=== PATIENT | female | born 1990 | race Caucasian/White ===

== ENCOUNTER 2023-10-23 15:28 | Emergency (ER) | payer OTHER, SELFPAY ==
[2023-10-23 15:34] VITALS: BP 134/84; PULSE 101; RESP 18; TEMP 36.4; O2SAT 100
--- NOTE | 2023-10-23 16:52 | ED.GENADULT ---
HPI - General Adult General Chief complaint: Unspecified Stated complaint: CONSTIPATION, 13WKS PREG Time Seen by Provider: 10/23/23 16:28 History of Present Illness HPI narrative: 33-year-old female who is currently 13 weeks , , reports for evaluation for constipation. Patient states her last bowel movement was approximately 1 week ago. States she normally has a bowel movement every 3 days. She states the past couple days, she has noticed some discomfort in her rectum. States it feels like she has a large amount of stool that she cannot void. States she had an episode of emesis and then had a panic attack which prompted her to come to the ER. Patient states that she conceived her baby via IVF and she is worried that she is putting her baby in jeopardy. She denies abdominal pain, vaginal bleeding or leaking of fluids, fever, dysuria or hematuria. Her OBGYN is Dr. Lizarraga. states her last appointment was 2 weeks ago and unremarkable. Related Data Home Medications Medication Instructions Recorded Confirmed folic acid 1 mg tablet 1 mg PO DAILY 10/14/23 10/14/23 vits,calcium no.78-iron 1 tablet PO DAILY 10/14/23 10/14/23 fumarate-folic acid 29 mg-1 mg tablet (Prenatabs FA) Allergies Allergy/AdvReac Type Severity Reaction Status Date / Time No Known Allergies Allergy Unverified 10/14/23 08:50 Review of Systems Review of Systems: CONSTITUTIONAL: Denies fever, chills, or sweats. EYES: Denies visual changes, redness, or discharge. ENT: Denies rhinorrhea, congestion, sore throat, or otalgia. CARDIOVASCULAR: Denies chest pain, palpitations, or edema. RESPIRATORY: Denies cough or dyspnea. GASTROINTESTINAL: Denies abdominal pain, nausea, vomiting, or diarrhea. GENITOURINARY: Denies dysuria or hematuria. SKIN: Denies rash or itching. MUSCULOSKELETAL: Denies back pain, joint pain, or myalgia. NEUROLOGIC: Denies headache, numbness, or weakness. PSYCHIATRIC: Denies anxiety or depression. [facility] Surgical History Surgical History H/O gynecological procedure 2 rounds IVF History of tubal ligation Hx of tonsillectomy Social History Social History (Reviewed 10/23/23 @ 16:54 by EBENEZER Glover Smoking status: Never smoker Alcohol intake: never Substance use: never Substance use type: does not use Do You Feel Safe in your Home?: Yes Lack of Transportation: No Lack of Food: Never True Current Housing: I Have Housing Concerned About Future Housing: No Difficulty Paying Gas/Electric Bills: No Difficulty Paying for Meds: No Currently Unemployed: No Education: Bachelor's Degree Difficulty w/ Childcare or Family Care: No Living arrangements: with family Occupation/Education: occupation Additional occupation/education comments: Customer service Gender identity (if verbalized by the patient): Female Sexual Orientation (if Verbalized by the Patient): Lesbian, Woodson, or Homosexual Exam Narrative: GENERAL: Well-appearing, well-nourished, and in no acute distress. non-toxic appearing. She is very anxious, rapid speech, tearful HEAD: Normocephalic, atraumatic. EYES: PERRLA and EOMI. ENT: Nares clear, no rhinorrhea or epistaxis. Mucous membranes moist. NECK: Supple. CHEST: Clear to auscultation. No respiratory distress. HEART: Regular rate and rhythm. No murmur heard. Normal peripheral pulses. ABDOMEN: Soft, nontender, nondistended, normal active bowel sounds. N guarding, rebound or rigidity. No CVA tenderness. EXTREMITIES: Normal range of motion. No edema. SKIN: Warm, dry, no rash. NEURO: No focal deficits. Alert and oriented x3 Course Vital Signs Vital signs: Vital Signs Temperature 97.6 F 10/23/23 15:34 Pulse Rate 101 H 10/23/23 15:34 Respiratory Rate 18 10/23/23 15:34 Blood Pressure 134/84 10/23/23 15:34 Pulse Oximetry 100 10/23/23 15:34 Oxygen Delivery Room Air 09/26
[2023-10-23 17:08] VITALS: BP 129/78; PULSE 68; RESP 17; TEMP 36.8; O2SAT 100
== END 2023-10-23 17:09 | disposition home or self-care (01) ==
LOC: ANHED 17:03
PROVIDERS: Emergency Provider Physician Assistant
DX: O99.611 Diseases of the digestive system complicating pregnancy, first trimester (principal); K59.00 Constipation, unspecified; Z3A.13 13 weeks gestation of pregnancy
CPT/HCPCS: 99283

== ENCOUNTER 2024-02-03 07:44 | Outpatient (CLI) | payer OTHER, SELFPAY ==
[2024-02-03 09:58] LABS: Basophils Absolute Auto 0.1 K/mm3 (0.0-0.1); Basophils Percent Auto 0.6 % (0.2-1.2); Eosinophils Absolute Auto 0.3 K/mm3 (0-0.3); Eosinophils Percent Auto 2.6 % (0-4.4); Hematocrit 33.3 % (37.0-47.0); Hemoglobin 11.2 g/dL (12.0-15.0); Immature Granulocyte Absolute 0.12 K/mm3 (0.00-0.031); Immature Granulocyte Percent A 1.2 % (0-0.5); Lymphocytes Absolute Auto 1.86 K/mm3 (0.9-3.2); Lymphocytes Percent Auto 17.9 % (18.3-44.2); Mean Corpuscular HGB Conc 33.6 g/dl (32-36); Mean Corpuscular Hemoglobin 30.3 pg (26-34); Mean Platelet Volume 9.9 fl (7.4-10.4); Monocytes Absolute Auto 0.8 K/mm3 (0.1-0.6); Monocytes Percent Auto 7.5 % (2.6-8.5); Neutrophils Absolute Auto 7.3 K/mm3 (1.3-6.7); Neutrophils Percent Auto 70.2 % (45.5-73.1); Platelet Count Result 222 k/mm3 (150-375); Red Cell Distribution Width 13.1 % (11.5-14.5); White Blood Count 10.4 K/mm3 (4.5-10.0)
[2024-02-03 10:15] LABS: Glucose 1 Hour PP 50gm Dose 111 mg/dL
[2024-02-03 11:43] LABS: Rapid Plasma Reagin Non-Reactive (NonReactive)
[2024-02-03 11:58] LABS: HIV 1/2 Ab P24 Ag Result Negative (Negative)
[2024-02-03] MEDS: RHO(D) IMMUNE GLOBULIN 300 MCG/2 ML SYRINGE IM (15:57)
== END 2024-02-03 07:45 | disposition home or self-care (01) ==
LOC: ANHLAB 07:46
PROVIDERS: Visit Provider Student in an Organized Health Care Education/Training Program
DX: Z34.90 Encounter for supervision of normal pregnancy, unspecified, unspecified trimester (principal); Z3A.00 Weeks of gestation of pregnancy not specified
CPT/HCPCS: 36415; 82947; 84443; 85025; 85461; 86592; 86703; 86850; 86900; 86901; 90384; 96372; G0432; J2790

== ENCOUNTER 2024-04-16 12:54 | Inpatient (IN) | payer OTHER, SELFPAY ==
[2024-04-16] VITALS (125 sets, daily range): BP systolic 106–151; BP diastolic 51–90; PULSE 38–108; RESP 18; TEMP 36.5–36.6; O2SAT 89–100; BMI 26.8
[2024-04-16] MEDS: LACTATED RINGERS 1,000 ML 125 ML IV CONT ×3 (15:10→23:24)
--- NOTE | 2024-04-16 15:16 | LDADM ---
This patient, Juliana Cassidy, was admitted to Labor/Delivery/Recovery 105 on 04/16/24 at 12:54. Plans for labor, pain management and were discussed with patient. Patient/family oriented to hospital policies and general routines including ID bracelet, bed and alarms, visiting hours, pain management, procedures, bathroom and other care routines, personal items, smoking policy, room service/diet and guest tray routines, security routines, and visiting hours. Patient/Family are encouraged to report perceived risks to care and to ask questions if they do not understand what they are told or what they should do. See OBIX for further documentation.
[2024-04-16 15:22] LABS: Basophils Percent Auto 0.4 % (0.2-1.2); Eosinophils Absolute Auto 0.1 K/mm3 (0-0.3); Eosinophils Percent Auto 1.2 % (0-4.4); Hematocrit 37.9 % (37.0-47.0); Hemoglobin 13.3 g/dL (12.0-15.0); Immature Granulocyte Absolute 0.08 K/mm3 (0.00-0.031); Immature Granulocyte Percent A 0.8 % (0-0.5); Lymphocytes Absolute Auto 2.09 K/mm3 (0.9-3.2); Lymphocytes Percent Auto 21.2 % (18.3-44.2); Mean Corpuscular HGB Conc 35.1 g/dl (32-36); Mean Corpuscular Volume 85.4 fl (80-100); Mean Platelet Volume 11.3 fl (7.4-10.4); Monocytes Absolute Auto 0.8 K/mm3 (0.1-0.6); Monocytes Percent Auto 8.2 % (2.6-8.5); Neutrophils Absolute Auto 6.7 K/mm3 (1.3-6.7); Neutrophils Percent Auto 68.2 % (45.5-73.1); Platelet Count Result 180 k/mm3 (150-375); Red Blood Count 4.44 M/mm3 (4.2-5.4); Red Cell Distribution Width 13.2 % (11.5-14.5); White Blood Count 9.9 K/mm3 (4.5-10.0)
--- NOTE | 2024-04-16 15:44 | WPDANESEPP ---
Anes - Eval Pre Procedure Procedure: Labor Epidural Date/Time: 04/16/24 15:44 Surgeon: Zia Preop Diagnosis: Pain during labor Pre Op Diagnosis: Labor Patient Data Age: 33 Gender: F Height: 1.73 m Weight: 80 kg Last Vital Signs O2 Del Method Room Air 04/16/24 15:15 Allergies Allergy/AdvReac Type Severity Reaction Status Date / Time No Known Allergies Allergy Verified 04/14/24 08:56 Home Medications Medication Instructions Recorded Confirmed Type aspirin 81 mg tablet,delayed 81 mg PO DAILY #90 tabs 10/14/23 04/14/24 Rx release folic acid 1 mg tablet 1 mg PO DAILY 10/14/23 04/14/24 History vits,calcium no.78-iron 1 tablet PO DAILY #90 tabs 11/05/23 04/14/24 Rx fumarate-folic acid 29 mg-1 mg tablet (Prenatabs FA) docusate sodium 100 mg capsule 100 mg PO BID #120 caps 11/11/23 04/14/24 Rx (Colace) ondansetron 4 mg disintegrating 4 mg PO Q6H PRN nausea and 11/11/23 04/16/24 Rx tablet vomiting #30 tabs Laboratory Tests 04/16/24 14:55 WBC 9.9 K/mm3 (4.5-10.0) RBC 4.44 M/mm3 (4.2-5.4) Hgb 13.3 g/dL (12.0-15.0) Hct 37.9 % (37.0-47.0) MCV 85.4 fl (80-100) MCH 30.0 pg (26-34) MCHC 35.1 g/dl (32-36) RDW 13.2 % (11.5-14.5) Plt Count 180 k/mm3 (150-375) MPV 11.3 H fl (7.4-10.4) Immature Gran % (Auto) 0.8 H % (0-0.5) Neut % (Auto) 68.2 % (45.5-73.1) Lymph % (Auto) 21.2 % (18.3-44.2) [place] % (Auto) 8.2 % (2.6-8.5) Eos % (Auto) 1.2 % (0-4.4) Baso % (Auto) 0.4 % (0.2-1.2) Lymph # (Auto) 2.09 K/mm3 (0.9-3.2) [place] # (Auto) 0.8 H K/mm3 (0.1-0.6) Eos # (Auto) 0.1 K/mm3 (0-0.3) Baso # (Auto) 0.0 K/mm3 (0.0-0.1) Abs Immat Gran (auto) 0.08 H K/mm3 (0.00-0.031) Absolute Neuts (auto) 6.7 K/mm3 (1.3-6.7) Absolute Nucleated RBC 0.000 K/mm3 (0.0-0.012) Nucleated RBC % 0.0 % (0.0-0.2) RPR Pending HIV 1&2 Ab/P24 Ag 4thGn Pending Patient hx anesthesia problems: none Family hx anesthesia problems: none Results Review: All pre-operative results and documents have been reviewed as part of the pre-operative evaluation. [facility] Surgical History Surgical History H/O gynecological procedure 2 rounds IVF History of tubal ligation Hx of tonsillectomy Family History Family History Other Unknown family medical history Social History Social History Smoking status: Never smoker Alcohol intake: never Substance use: never Substance use type: does not use Do You Feel Safe in your Home?: Yes Lack of Transportation: No Lack of Food: Never True Current Housing: I Have Housing Concerned About Future Housing: No Difficulty Paying Gas/Electric Bills: No Difficulty Paying for Meds: No Currently Unemployed: No Education: Bachelor's Degree Difficulty w/ Childcare or Family Care: No Living arrangements: with family Occupation/Education: occupation Additional occupation/education comments: Customer service Gender identity (if verbalized by the patient): Female Sexual Orientation (if Verbalized by the Patient): Lesbian, Woodson, or Homosexual Spiritual care concerns: No Exam Day of Procedure 04/16/24 15:44 Patient weight: normal Heart: regular rate and rhythm Lungs: normal air movement Airway: Mallampati scale class II Neurological: alert and oriented
[2024-04-16 16:01] LABS: Rapid Plasma Reagin Non-Reactive (NonReactive)
[2024-04-16 16:12] LABS: HIV 1/2 Ab P24 Ag Result Negative (Negative)
[2024-04-16] MEDS: CALCIUM CARBONATE (TUMS) 500 MG (200 MG ELEMENTAL) PO (20:13)
[2024-04-16] MEDS: ONDANSETRON INJ 4 MG/2 ML VIAL IV PUSH (20:34)
[2024-04-16] MEDS: OXYTOCIN 30 UNITS/NS 500 ML 30 UNITS/500 ML BAG IV CONT (22:16)
[2024-04-17] VITALS (46 sets, daily range): BP systolic 92–133; BP diastolic 57–84; PULSE 74–156; RESP 16–18; TEMP 36.6–36.9; O2SAT 89–100
[2024-04-17] MEDS: FAMOTIDINE 20 MG/2 ML VIAL IV PUSH (00:54)
--- NOTE | 2024-04-17 02:23 | PM.IMHP ---
H&P: HPI History of Present Illness Date/Time: 04/17/24 02:23 Chief Complaint: Contractions Narrative: 33 y/o at 38 6/7 by IVF dating. PNC uncomplicated. Labs reviewed. GBS neg. She presented to L and D with contractions and was 4 cm. Admitted in active labor. Review of Systems Review of Systems: All systems reviewed & are unremarkable except as noted in HPI and below Constitutional: Constitutional: Reports no additional constitutional complaints and Denies headache(s) Eyes: Eyes: Denies spots in vision ENT: Reports system reviewed and no additional complaints, except as documented and Denies headache(s) Cardiovascular: Cardiovascular: Denies chest pain and Denies dyspnea Respiratory: Respiratory: Denies dyspnea Gastrointestinal: Gastrointestinal: Reports no additional gastrointestinal complaints Genitourinary: Genitourinary: Reports amenorrhea Musculoskeletal: Musculoskeletal: Reports no additional musculoskeletal complaints Integumentary/Breasts: Skin/Breast: Denies breast mass and Denies rash Neurologic: Denies headache(s) Psychiatric: Psychiatric: Reports no additional psychiatric complaints [facility] Surgical History Surgical History H/O gynecological procedure 2 rounds IVF History of tubal ligation Hx of tonsillectomy Family History Family History Other Unknown family medical history Social History Social History Smoking status: Never smoker Alcohol intake: never Substance use: never Substance use type: does not use Do You Feel Safe in your Home?: Yes Lack of Transportation: No Lack of Food: Never True Current Housing: I Have Housing Concerned About Future Housing: No Difficulty Paying Gas/Electric Bills: No Difficulty Paying for Meds: No Currently Unemployed: No Education: Bachelor's Degree Difficulty w/ Childcare or Family Care: No Living arrangements: with family Occupation/Education: occupation Additional occupation/education comments: Customer service Gender identity (if verbalized by the patient): Female Sexual Orientation (if Verbalized by the Patient): Lesbian, Woodson, or Homosexual Spiritual care concerns: No Meds Home Medications and Allergies Home Medications Medication Instructions Recorded Confirmed Type aspirin 81 mg tablet,delayed 81 mg PO DAILY #90 tabs 10/14/23 04/14/24 Rx release folic acid 1 mg tablet 1 mg PO DAILY 10/14/23 04/14/24 History vits,calcium no.78-iron 1 tablet PO DAILY #90 tabs 11/05/23 04/14/24 Rx fumarate-folic acid 29 mg-1 mg tablet (Prenatabs FA) docusate sodium 100 mg capsule 100 mg PO BID #120 caps 11/11/23 04/14/24 Rx (Colace) ondansetron 4 mg disintegrating 4 mg PO Q6H PRN nausea and 11/11/23 04/16/24 Rx tablet vomiting #30 tabs Allergies Allergy/AdvReac Type Severity Reaction Status Date / Time No Known Allergies Allergy Verified 04/14/24 08:56 Vital Signs Vital Signs - 24 hr 04/16/24 15:15 04/16/24 15:47 04/16/24 15:49 Temperature Pulse Rate 94 Respiratory Rate Blood Pressure 151/78 H Pulse Oximetry 98 Oxygen Delivery Room Air 04/16/24 15:52 04/16/24 15:54 04/16/24 15:56 Temperature Pulse Rate 96 Respiratory Rate Blood Pressure 141/90 H Pulse Oximetry 100 93 Oxygen Delivery 04/16/24 15:59 04/16/24 16:00 04/16/24 16:01 Temperature Pulse Rate 94 101 H 91 Respiratory Rate Blood Pressure 137/76 122/78 129/81 Pulse Oximetry 97 Oxygen Delivery 04/16/24 16:03 04/16/24 16:04 04/16/24 16:05 Temperature Pulse Rate 99 100 Respiratory Rate Blood Pressure 118/71 114/82 Pulse Oximetry 96 Oxygen Delivery 04/16/24 16:08 04/16/24 16:09 04/16/24 16:10 Temperature Pulse Rate 100 91 Respiratory Rate Blood Pressure 1
--- NOTE | 2024-04-17 02:27 | P.PCNOB_ITS ---
OB - Vaginal Delivery Note Procedure Delivery date: 04/17/24 Events: Other (IVF conception) Induction method: None Delivery augmentation: Pitocin Delivery monitor: External FHT Route of delivery: Episiotomy description: None Laceration Description: Perineal - 1st Degree Delivery repair: vicryl (3.0 vicryl) Specimen: No Quantitative Blood Loss (ml): 250 Anesthesia type: Epidural Disposition: Floor Complications: No immediate complications Narrative: She was admitted in active labor. She progressed to complete and delivered a female infant. Anterior shoulder d elivered and then suctioned nose and mouth at perineum, with gentle traction the rest of the baby was delivered. Baby was crying vigorously after massage on maternal abdomen and cord was doubly clamped and cut. Cord blood and cord gases obtained. Pitocin started. Placenta delivered. She sustained a small laceration, first degree at introitus, approximated with 3.0 vicryl. Hemostasis noted. Baby Date of : 04/17/24 Time of : 02:01 Gestational Age by Date: 38 Infant gender: Female Weight (pounds): 8 Weight (ounces): 8 presentation: vertex position: Left Occiput Anterior Placenta delivery description: Spontaneous Cord Vessel Description: 3 Vessels and Clamped/Cut score one minute: 8 score five minutes: 9
[2024-04-17] MEDS: IBUPROFEN 600 MG TABLET PO ×3 (02:52→23:38)
--- NOTE | 2024-04-17 04:46 | OBPPTRN ---
Patient transferred to post room #286 via wheelchair. Support person-spouse Lamar- present. Oriented to unit, room, information board, rooming in, admission packet and security measures. Patient verbalizes understanding.
[2024-04-17] MEDS: MULTIVIT/MIN/PREN/FOL AC/IRON TABLET 1 TAB PO (08:54)
--- NOTE | 2024-04-17 09:00 | PC.NURSE ---
Assisted patient to set up and use her Spectra breast pump. We fitted her with the 24mm flanges. Mother has bilateral nipple piercing so we discussed minimal use of nipple creams and always touching her breasts with clean hands and ways to prevent infection. Since baby is not going to breast, discussed its her personal preference if she wants to leave the rings in while pumping. Instructions given on cleaning, care, usage, that there should be no pain, pumping schedule for milk production, collection, and storage of human milk. Patient was assessed for correct placement, flange size, to pump for comfort and nipple stretching/stimulation for adequate milk production every 3 hours (8 times in 24 hours) 1-2 times at night. Mother voiced understanding of the education shared along with mom/baby guide for additional resource information. Reported to the Primary RN.
--- NOTE | 2024-04-17 20:04 | PC.NURSE ---
Patient requested syringe to collect EBM that was too little to feed via bottle. Discussed with parents not feeding with syringe and to use gloved finger or mix in with formula via bottle. Parents are doing mixture of formula and breast milk via bottle.
[2024-04-18 03:30] VITALS: BP 122/62; PULSE 80; RESP 18; TEMP 36.8; O2SAT 100
[2024-04-18 05:17] LABS: Hematocrit 28.7 % (37.0-47.0); Hemoglobin 9.9 g/dL (12.0-15.0)
[2024-04-18 07:55] VITALS: BP 126/65; PULSE 70; RESP 18; TEMP 36.8; O2SAT 99
[2024-04-18] MEDS: POLYSACCHARIDE IRON COMPLEX 150 MG CAPSULE PO (09:23)
[2024-04-18] MEDS: DOCUSATE SODIUM 100 MG CAPSULE PO (09:23)
[2024-04-18] MEDS: MULTIVIT/MIN/PREN/FOL AC/IRON TABLET 1 TAB PO (09:23)
[2024-04-18] MEDS: IBUPROFEN 600 MG TABLET PO (09:23)
[2024-04-18] MEDS: LANOLIN (LANSINOH) 7.5 GM CREAM 1 APPLIC TOPICAL (09:24)
--- NOTE | 2024-04-18 11:20 | PC.NURSE ---
Patient viewed the discharge video Mother & Baby Care, The First Two Weeks . Patient was given the opportunity and encouraged to ask questions. Patient verbalized understanding of information shared and has been given the mother/baby guide for home reference.
[2024-04-18] MEDS: RHO(D) IMMUNE GLOBULIN 300 MCG/2 ML SYRINGE IM (13:01)
--- NOTE | 2024-05-13 12:45 | PM.OBDSVD ---
DS: Admitting Diagnosis Discharge Date 04/18/24 Admitting Diagnosis Active Labor DS: Discharge Diagnosis Discharge Diagnosis (1) Vaginal delivery: Code(s): O80 - Encounter for full-term uncomplicated delivery Status: Acute OB - DS: Summary Hospital Course Hospital Course: She was admitted in active labor. She had an uncomplicated vaginal delivery. She was doing well baby was doing well . She requested discharge home on day 1. Discharge precautions discussed. OB Procedures : Ultrasound OB Procedures Intrapartum: Spontaneous Vag Delivery OB Procedures: : None Peripartum Data Delivery Method: Natural Vaginal Laceration Description: Perineal - 1st Degree Episiotomy description: None complications: none Status at Discharge Functional status at discharge: independent ambulation Time Spent with Patient Time attestation: Total time spent providing and/or coordinating discharge services: Exam Const: General: cooperative Orientation/consciousness: oriented to person, oriented to place and oriented to time HENMT: Face/Nose/Sinus: Normal external nose present Eyes: General: appearance normal, both eyes and all related structures Resp: Effort & Inspection: normal respiratory effort GI: Inspection: normal to inspection Skin: General skin exam: normal color Neuro: General: oriented to person, oriented to place and oriented to time Extrem: General: normal to inspection and no calf tenderness Psych: Appearance: grossly normal Mental Status: mental status grossly normal Discharge Plan Discharge Attending physician on discharge: Nova Lizarraga Consulting providers: Kevin Brink; Josesito Perez Discharging Clinician: Josesito Perez Anticipated Discharge Date/Time: 04/18/24 08:59 Patient Disposition: Home, Self-Care Activity: may shower Diet: regular Discharge Instructions: Education: Mom and Baby Guide Given to: Mother Follow-Up: Call your delivering provider's office for an appointment to be seen in: Call office for appointment Mom and baby should come to the [facility] for the follow-up appointment. Appointment Date/Time: April 19, 2024 at 8:00 am What to expect at your follow-up visit: Physical Assessment Call [phone] if you are unable to keep your appointment time. BREAST CARE: * Wear a snug supportive bra. * For engorgement discomfort: Breast Feeding: * Apply warm moist washcloths * Express milk as needed to relieve engorgement * Wear loose clothing Bottle Feeding: * May apply ice packs * For sore nipples: * Identify correct latch-on * Apply warm moist washcloths before and after nursing * Air dry nipples after nursing * May apply Lansinoh cream to nipples EPISIOTOMY/PERINEAL CARE: * Until bleeding stops, use your ras bottle after urinating * Change your pad frequently throughout the day * You may take sitz baths several times a day (fill your bathtub with warm water and soak for 20 minutes.) Do NOT bathe in the water * No tub baths until seen by your physician - You may shower ACTIVITY: * Rest as much as possible. * Do not exercise or lift anything heavier than your baby (such as laundry or other children.) * Avoid stairs or driving as much as possible. * Do not put anything into the vagina. No douching, tampons, or sexual activity until seen by physician. NOTIFY PHYSICIAN IF YOU HAVE ANY QUESTIONS OR IF ANY OF THE FOLLOWING SYMPTOMS OCCUR: * If your episiotomy/perineum becomes red, swollen, or more painful than what you have experienced in the hospital. * If your vaginal bleeding becomes foul smelling. * If your vaginal bleeding becomes more heavy than a period or if your bleeding changes from pink to bright red. However, you may pass an occasional walnut-
== END 2024-04-18 13:10 | disposition home or self-care (01) | DRG 807 ==
LOC: ANHLDR 17:55 → ANHOB2 04-17 06:24
PROVIDERS: Obstetrics & Gynecology; Admitting Provider Obstetrics & Gynecology; Visit Provider Obstetrics & Gynecology
DX: O70.0 First degree perineal laceration during delivery (principal); Z37.0 Single live birth; Z3A.38 38 weeks gestation of pregnancy
CPT/HCPCS: 36415; 85014; 85018; 85025; 85461; 86592; 86703; 86850; 86880; 86900; 86901; 90384; A9270; G0432; J2405; J2590; J2790; J2795; J7120